=== PATIENT | male | born 1980 | race African-American/Black ===

== ENCOUNTER 2017-09-05 00:24 | Emergency (ER) | payer SELFPAY ==
[2017-09-05 00:30] VITALS: BMI 119.9
[2017-09-05 00:48] VITALS: BP 136/88
--- NOTE | 2017-09-05 01:10 | DR.CP ---
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 Denies a history of heart disease. Chief Complaint:: CHEST PAIN WITH TIGHTNESS, SHORT OF BREATH. WITH NUMBNESS IN ARM. AT REST AND ON EXCERTION - Source History Provided: Patient - Mode of Arrival Mode of Arrival: Ambulatory - Timing Onset of Chief Complaint: 08/15/17 - Location Chest Pain Radiation Location: Left Arm, Right Arm - Associated Signs and Symptoms Associated Signs and Symptoms: Shortness of Breath PMH - PMH Past Medical History: No Past Surgical History: No - Family History History of Family Medical Conditions: No - Social History Does any household member use tobacco: Yes Alcohol Use: Occasionally Do you use any recreational Drugs:: No Lives With: Family Lives Where: Home - infectious screening In the last 2 months have you had wt loss of >10#?: NO Have you had fever, night sweats or hemotysis?: No Have you traveled outside the country in the last 6 months?: No Isolation: Standard ROS - Review of Systems Eyes: No Symptoms Reported ENTM: No Symptoms Reported Respiratoy: No Symptoms Reported Cardiovascular: No Symptoms Reported Gastrointestinal/Abdominal: No Symptoms Reported Genitourinary: No Symptoms Reported Neurological: No Symptoms Reported Musculoskeletal: No Symptoms Reported Integumentary: No Symptoms Reported Hematologic/Lymphatic: No Symptoms Reported Endocrine: No Symptoms Reported Psychiatric: No Symptoms Reported All Other Systems: Reviewed and Negative PE - Vitals Vitals: Temperature 97.8 F Pulse Rate [Left Brachial] 60 Pulse Rate 70 Respiratory Rate 24 Blood Pressure [Left Arm] 136/88 Blood Pressure 131/93 O2 Sat by Pulse Oximetry 98 - General Limitations: No Limitations General Appearance: Alert, In No Apparent Distress - Head Head Exam: Normal Inspection, Atraumatic - Eyes Eye exam: Normal Appearance, PERRL, EOMI - ENT ENT Exam: Normal Exam - Chest Chest Inspection: Normal Inspection, Symmetric Chest Wall Rise - Respiratory Respiratory Exam: Normal Lung Sounds Bilat Respiratory Exam: Bilateral Clear to Auscultation - Cardiovascular Cardiovascular Exam: Regular Rate, Normal Rhythm Pulse: Normal - Abdominal Exam Abdominal Exam: Normal Inspection Abdominal Tenderness: negative: RUQ, RLQ, LUQ, LLQ, Epigastrium, Suprapubic, Diffuse, Mild, Moderate, Severe, Other - Extremities Extremities Exam: Normal Inspection, Full ROM - Back Back Exam: Normal Inspection, Full ROM - Neurologic Neurological Exam: Alert, Oriented X3, CN II-XII Intact - Psychiatric Psychiatric Exam: Normal Affect - Skin Skin Exam: Warm, Dry, Intact ROR - Labs Reviewed Laboratory Results Reviewed?: Yes (H Pylori positive) Result Diagrams: 09/05/17 01:22 Laboratory: WBC 7.6 X10^3/uL (3.6-10.0) 09/05/17 01:22 RBC 4.92 X10^6/uL (4.7-6.0) 09/05/17 01:22 Hgb 14.7 g/dL (13.5-18.0) 09/05/17 01:22 Hct 42.1 % (42.0-54.0) 09/05/17 01:22 MCV 85.5 fL (80.0-100.0) 09/05/17 01: MCH 29.9 pg (27.0-34.0) 09/05/17 01:22 MCHC 34.9 g/dL (33.0-35.0) 09/05/17 01:22 RDW 13.1 % (11.6-16.5) 09/05/17 01:22 Plt Count 230 X10^3/uL (150.0-450.0) 09/05/17 01:22 MPV 8.6 fL (7.4-11.0) 09/05/17 01: Neut % (Auto) 55.7 % (42.0-75.0) 09/05/17 01:22 Lymph % (Auto) 26.1 % (21.0-51.0) 09/05/17 01:22 Emmons % (Auto) 11.5 % (0.0-13.0) 09/05/17 01: Eos % (Auto) 6.0 % (0.9-2.9) H 09/05/17 01:22 Baso % (Auto) 0.7 % (0.2-1.0) 09/05/17 01:22 Neut # (Auto) 4.2 x10^3/uL (2.2-4.8) 09/05/17 01:22 Lymph # (Auto) 2.0 X10^3/uL (1.3-2.9) 09/05/17 01:22 Emmons # (Auto) 0.9 x10^3/uL (0.3-0.8) H 09/05/17 01:22 Eos # (Auto) 0.5 x10^3/uL (0.0-0.2) H 09/05/17 01:22 Baso # (Auto) 0.1 X10^3/uL (0.0-0.1) 09/05/17 01:22 Absolute Nucleated RBC 0.1 /100WBC 09/05/17 01:22 INR Target Range - 09/05/17 01:22 INR 0.92 (0.8-1.3) 09/05/17 01:22 APTT 25.5 SECONDS (22.9-36.5) 09/05/17 01:22 PTT Comment - 09/05/17 01:22 Magnesium 2.1 mg/dL (1.7-2.9) 09/05/17 01:22 Creatine Kinase 288 Units/L (39-308) 09/05/17 01:22 CK-MB (CK-2) < 1.0 ng/mL (0-4.0) 09/05/17 01:22 CK/CKMB % Calc 0.4 % (<4) 09/05/17 01:22 Troponin I 0.08 ng/mL (0-1.5) 09/05/17 01:22 H. pylori IgG Antibody Positive (NEGATIVE) A 09/05/17 01:22 - XRAY XRAY Interpreted by: Radiologist (Chest: No acute abnormality) - Diagnosis Discharge Problem: Helicobacter pylori gastritis - Discharge Plan Condition: Stable - Follow ups/Referrals Follow ups/Referrals: NFD,None [Primary Care Provider] - 3 days - Instructions
[2017-09-05 01:38] LABS: BASOPHILS # (AUTO) 0.1 X10^3/uL (0.0-0.1); BASOPHILS % (AUTO) 0.7 % (0.2-1.0); EOSINOPHILS # (AUTO) 0.5 x10^3/uL (0.0-0.2); HEMATOCRIT 42.1 % (42.0-54.0); HEMOGLOBIN 14.7 g/dL (13.5-18.0); LYMPHOCYTES % (AUTO) 26.1 % (21.0-51.0); MEAN CORPUSCULAR HEMOGLOBIN 29.9 pg (27.0-34.0); MEAN CORPUSCULAR HGB CONC 34.9 g/dL (33.0-35.0); MEAN CORPUSCULAR VOLUME 85.5 fL (80.0-100.0); MEAN PLATELET VOLUME 8.6 fL (7.4-11.0); MONOCYTES # (AUTO) 0.9 x10^3/uL (0.3-0.8); MONOCYTES % (AUTO) 11.5 % (0.0-13.0); NEUTROPHILS # (AUTO) 4.2 x10^3/uL (2.2-4.8); NEUTROPHILS % (AUTO) 55.7 % (42.0-75.0); PLATELET COUNT 230 X10^3/uL (150.0-450.0); RED BLOOD COUNT 4.92 X10^6/uL (4.7-6.0); RED CELL DISTRIBUTION WIDTH 13.1 % (11.6-16.5); WHITE BLOOD COUNT 7.6 X10^3/uL (3.6-10.0)
--- NOTE | 2017-09-05 01:40 | RAD ---
Chest, AP Indication: Chest pain, arm numbness Comparison: None Findings: The cardiac silhouette is unremarkable. The lungs are mildly hypoinflated but grossly clear without dense infiltrates or pleural effusion. Impression: No acute chest process. Reported By:
[2017-09-05 01:53] LABS: CKMB % 0.4 % (<4); CREATINE KINASE 288 Units/L (39-308); CREATINE KINASE MB < 1.0 ng/mL (0-4.0); MAGNESIUM 2.1 mg/dL (1.7-2.9); TROPONIN I 0.08 ng/mL (0-1.5)
[2017-09-05 02:43] LABS: BILIRUBIN,URINE NEGATIVE (NEGATIVE); BLOOD/HEMOGLOBIN,URINE NEGATIVE (NEGATIVE); GLUCOSE, URINE NEGATIVE (NEGATIVE); KETONES,URINE NEGATIVE (NEGATIVE); LEUKOCYTE ESTERASE ,URINE NEGATIVE (NEGATIVE); NITRITES,URINE NEGATIVE (NEGATIVE); PH,URINE 6.5 (5.0 - 8.0); PROTEIN,URINE NEGATIVE (NEGATIVE); UROBILINOGEN,URINE 2+ (NORMAL)
[2017-09-05 02:49] LABS: APPEARANCE,URINE CLEAR (CLEAR); COLOR,URINE YELLOW (YELLOW)
[2017-09-05 02:50] LABS: BACTERIA,URINE NEGATIVE /HPF (NEGATIVE); RBC,URINE 0-2 /HPF (NONE SEEN); SQUAMOUS EPITHELIAL CELL,UR RARE /HPF (NEGATIVE)
== END 2017-09-05 03:05 | disposition home or self-care (01) ==
LOC: ER 00:24
DX: R07.89 Other chest pain (principal); B96.81 Helicobacter pylori [H. pylori] as the cause of diseases classified elsewhere
CPT/HCPCS: 36415; 71045; 80307; 81001; 82550; 82553; 83735; 84484; 85025; 85610; 85730; 86677; 93005; 93010; 99283; G0434